=== PATIENT | male | born 1990 | race American Indian/Alaskan Native ===

== ENCOUNTER 2016-10-21 02:27 | Observation (INO) | payer OTHER ==
--- NOTE | 2016-10-21 02:41 | ED PDOC ---
Arrival/HPI - General Time Seen by Provider: 10/21/16 02:30 Historian: Patient, Parent - History of Present Illness Narrative History of Present Illness (Text): 10/21/16 02:35 Zenon Mckeon is a 25 year old male who presents to the emergency department brought in by EMS complaining of abdominal pain. Relative reports patient woke up with right-sided abdominal pain a few hours ago prior to arrival with associated nausea. Relative notes patient was fine throughout the day. Patient denies any fever, chills, chest pain, shortness of breath, vomiting, back pain, neck pain, headache, dizziness, or any other complaints. Time/Duration: 1-3 hours Symptom Onset: Gradual Symptom Course: Worsening Activities at Onset: Rest, Light Context: Home Associated Symptoms (Text): None Past Medical History - Provider Review Nursing Documentation Reviewed: Yes Family/Social History - Physician Review Nursing Documentation Reviewed: Yes Family/Social History: Unknown Family HX Allergies/Home Meds Allergies/Adverse Reactions: Allergies lactose Allergy (Verified 10/21/16 16:13) DIARRHEA Home Medications: Home Meds Medication Instructions Recorded Confirmed No Known Home Med 10/22/16 10/22/16 Review of Systems - Physician Review All systems were reviewed & negative as marked: Yes - Review of Systems Constitutional: Normal. absent: Fevers Eyes: Normal ENT: Normal Respiratory: Normal. absent: SOB, Cough Cardiovascular: Normal. absent: Chest Pain Gastrointestinal: Abdominal Pain (Right lower quadrant ), Nausea. absent: Vomiting Genitourinary Male: Normal. absent: Dysuria, Frequency, Hematuria, Urinary Output Changes Musculoskeletal: Normal. absent: Back Pain, Neck Pain Skin: Normal Neurological: Normal. absent: Headache Endocrine: Normal Hemo/Lymphatic: Normal Psychiatric: Normal Physical Exam Vital Signs Reviewed: Yes Vital Signs Temp Pulse Resp BP Pulse Ox 10/21/16 06:00 95 H 18 136/61 98 10/21/16 04:27 93 H 18 131/80 100 10/21/16 02:46 98.3 F 80 16 155/86 H 98 Temperature: Afebrile Blood Pressure: Normal Pulse: Regular Respiratory Rate: Normal Appearance: Positive for: Well-Appearing, Non-Toxic, Uncomfortable Pain Distress: None Mental Status: Positive for: Alert and Oriented X 3 - Systems Exam Head: Present: Atraumatic, Normocephalic Pupils: Present: PERRL Extroacular Muscles: Present: EOMI Conjunctiva: Present: Normal Mouth: Present: Moist Mucous Membranes Neck: Present: Normal Range of Motion Respiratory/Chest: Present: Clear to Auscultation, Good Air Exchange. No: Respiratory Distress, Accessory Muscle Use Cardiovascular: Present: Regular Rate and Rhythm, Normal S1, S2. No: Murmurs Abdomen: Present: Tenderness (RLQ tenderness), Normal Bowel Sounds. No: Distention, Peritoneal Signs Upper Extremity: Present: Normal Inspection. No: Cyanosis, Edema Lower Extremity: Present: Normal Inspection. No: Edema Neurological: Present: GCS=15, CN II-XII Intact, Speech Normal Skin: Present: Warm, Dry, Normal Color. No: Rashes Psychiatric: Present: Alert, Oriented x 3, Normal Insight, Normal Concentration Medical Decision Making ED Course and Treatment: 10/21/16 2:35 Impression: 25 year old male complaining of right lower abdominal pain. Differential Diagnosis included but are not limited to: appendicitis Plan: -- Labs, VBG -- CT Abdomen and Pelvis with IV contrast -- IV fluids -- Morphine -- Zofran -- Urinalysis -- Reassess and disposition 10/21/16 05:11 Reviewed radiology, CT Abdomen and Pelvis shows: Appendicitis as above. No perforation or abscess. Remainder as above. 10/21/16 05:[address] Sincere Pittman, surgeon aircraft air conditioning mechanic, who is aware and agrees with plan. Accepts pt in her service. Pt will be admitted to [facility] for appendicitis. Pt is no acute distress. Discussed results and hospital admission plan with pt, who is aware and verbalizes understanding. 10/21/16 05:26 Case discussed with certified surgical first assistant aircraft air conditioning mechanic, who is aware and agrees with plan. - Lab Interpretations Microbiology Results: Microbiology Results 10/21/16 02:53 Blood-Venous Blood Culture - Preliminary NO GROWTH AFTER 48 HOURS 10/21/16 02:45 Blood-Venous Blood Culture - Preliminary NO GROWTH AFTER 48 HOURS Lab Results: 10/21/16 02:45 10/21/16 02:45 Lab Results 10/21/16 04:22: Urine Color Yellow, Urine Appearance Clear, Urine pH 7.0, Ur Specific [place] 1.015, Urine Protein Negative, Urine Glucose (UA) Negative, Urine Ketones Negative, Urine Blood Negative, Urine Nitrate Negative, Urine Bilirubin Negative, Urine Urobilinogen 1.0 H, Ur Leukocyte Esterase Negative 10/21/16 02:45: pO2 45, VBG pH 7.42, VBG pCO2 43.0, VBG HCO3 27.9, VBG Total CO2 29.2 H, VBG O2 Sat (Calc) 86.0 H, VBG Base Excess 2.9 H, VBG Potassium 3.6, Sodium 138.0, Chloride 104.0, Glucose 159 H, Lactate 2.9 H, FiO2 21.0, Venous Blood Potassium 3.6 10/21/16 02:45: Sodium 141, Chloride 102, Potassium 3.1 L, Carbon Dioxide 25, Anion Gap 17, BUN 18, Creatinine 1.0, Est GFR ( Amer) > 60, Est GFR (Non- Af Amer) > 60, Random Glucose 148 H, Calcium 9.6, Total Bilirubin 1.4 H, AST 26 , ALT 24, Alkaline Phosphatase 55, Total Protein 7.6, Albumin 4.4, Globulin 3.2 , Albumin/Globulin Ratio 1.4, Lipase 44 10/21/16 02:45: PT 11.6, INR 1.07, APTT 23.8 10/21/16 02:45: WBC 11.0, RBC 4.98, Hgb 15.1, Hct 42.1, MCV 84.5, MCH 30.3, MCHC 35.9, RDW 12.5, Plt Count 205, MPV 10.1, Gran % 71.3 H, Lymph % (Auto) 23.9 , [place] % (Auto) 4.2, Eos % (Auto) 0.5 L, Baso % (Auto) 0.1, Gran # 7.85 H, Lymph # 2.6, [place] # 0.5, Eos # 0.1, Baso # 0.01 I have reviewed the lab results: Yes - RAD Interpretation Narrative RAD Interpretations (Text): CT Abdomen and Pelvis shows: Dictated and Authenticated by: Tony Waite MD The appendix is well visualized and is enlarged, measuring 10 mm, upper limits normal 6 mm. There is wall thickening and subtle periappendiceal stranding. There is no pneumoperitoneum or abscess. There is no bowel obstruction. No acute solid organ pathology. IMPRESSION: Appendicitis as above. No perforation or abscess. Remainder as above. Radiology Orders: 10/21/16 02:48 ABD & PELVIS IV CONTRAST ONLY [CT] Stat Supervisor Speech: Radiologist - Medication Orders Current Medication Orders: Discontinued Medications Famotidine (Pepcid) 20 mg IVP DAILY [facility] Last Admin: 10/22/16 09:40 Dose: 20 mg Fentanyl (Fentanyl) Confirm Administered Dose 100 mcg .ROUTE .STK-MED ONE Stop: 10/21/16 16:41 Glycopyrrolate (Robinul) Confirm Administered Dose 0.4 mg .ROUTE .STK-MED ONE Stop: 10/21/16 17:11 Hydromorphone HCl (Dilaudid) 0.5 mg IVP Q15M PRN PRN Reason: Pain, moderate (4-7) Stop: 10/21/16 18:01 Hydromorphone HCl (Dilaudid) 0.5 mg IVP Q15M PRN PRN Reason: Pain, moderate (4-7) Stop: 10/21/16 20:12 Sodium Chloride (Sodium Chloride 0.9%) 1,000 mls @ 150 mls/hr IV .[id number] [facility] Last Admin: 10/22/16 05:31 Dose: 150 mls/hr Potassium Chloride (Potassium Chloride 20 Meq/100 Ml) 20 meq in 100 mls @ 50 mls/hr IVPB ONCE ONE Stop: 10/21/16 05:28 Last Admin: 10/21/16 03:39 Dose: 50 mls/hr Metronidazole (Flagyl) 500 mg in 100 mls @ 100 mls/hr IVPB STAT STA PRN Reason: Protocol Stop: 10/21/16 06:28 Last Admin: 10/21/16 05:54 Dose: 100 mls/hr Ceftriaxone Sodium (Rocephin 1 Gram Ivpb) 1 gm in 100 mls @ 200 mls/hr IVPB STAT STA PRN Reason: Protocol Stop: 10/21/16 05:59 Last Admin: 10/21/16 05:53 Dose: 200 mls/hr Lactated Ringer's (Lactated Ringer's) 1,000 mls @ 75 mls/hr IV .[id number] [facility] Stop: 10/21/16 18:02 Metronidazole (Flagyl) 500 mg in 100 mls @ 100 mls/hr IVPB Q8 ALLAN PRN Reason: Protocol Last Admin: 10/22/16 05:30 Dose: 100 mls/hr Ceftriaxone Sodium (Rocephin 1 Gram Ivpb) 1 gm in 100 mls @ 200 mls/hr IVPB STAT STA PRN Reason: Protocol Stop: 10/21/16 18:54 Last Admin: 10/21/16 19:43 Dose: 200 mls/hr Iohexol (Omnipaque 350 100 Ml) Confirm Administered Dose 350 mg .ROUTE .STK-MED ONE Stop: 10/21/16 03:43 Ketorolac Tromethamine (Toradol) Confirm Administered Dose 30 mg .ROUTE .STK- MED ONE Stop: 10/21/16 17:11 Midazolam HCl (Versed Inj) Confirm Administered Dose 2 mg .ROUTE .STK-MED ONE Stop: 10/21/16 16:41 Morphine Sulfate (Morphine) 2 mg IVP STAT STA Stop: 10/21/16 02:49 Last Admin: 10/21/16 03:02 Dose: 2 mg Re-Assess: BANNER Pain Assessment Document 10/21/16 04:02 JOAdela (Rec: 10/21/16 06:19 [facility] [place]-[id number]) Pain Reassessment Is this a pain reassessment? Yes Sleep Is patient sleeping during reassessment? Yes Morphine Sulfate (Morphine) 2 mg IVP Q4H PRN PRN Reason: Pain, severe (8-10) Morphine Sulfate (Morphine) 4 mg IVP Q4H PRN PRN Reason: Pain, severe (8-10) Neostigmine Methylsulfate (Neostigmine Methylsulfate) Confirm Administered Dose 3 mg IV .STK-MED ONE Stop: 10/21/16 17:27 Ondansetron HCl (Zofran Inj) 4 mg IVP STAT STA Stop: 10/21/16 02:49 Last Admin: 10/21/16 03:01 Dose: 4 mg Ondansetron HCl (Zofran Inj) 4 mg IVP Q4H PRN PRN Reason: Nausea/Vomiting Ondansetron HCl (Zofran Inj) 4 mg IVP ONCE PRN PRN Reason: Nausea/Vomiting Stop: 10/21/16 23:59 Ondansetron HCl (Zofran Inj) 4 mg IVP ONCE PRN PRN Reason: Nausea/Vomiting Stop: 10/21/16 23:59 Propofol (Diprivan) Confirm Administered Dose 200 mg .ROUTE .STK-MED ONE Stop: 10/21/16 16:41 Propofol (Diprivan) Confirm Administered Dose 200 mg .ROUTE .STK-MED ONE Stop: 10/21/16 17:28 Rocuronium [place] (Zemuron) Confirm Administered Dose 50 mg .ROUTE .STK-MED ONE Stop: 10/21/16 17:11 Succinylcholine Chloride (Quelicin) Confirm Administered Dose 200 mg IV .STK- MED ONE Stop: 10/21/16 16:41 - Scribe Statement The provider has reviewed the documentation as recorded by the Scribe 10/21/16 Shakira Gutierrez training with Janelle Alston All medical record entries made by the Scribe were at my direction and personally dictated by me. I have reviewed the chart and agree that the record accurately reflects my personal performance of the history, physical exam, medical decision making, and the department course for this patient. I have also personally directed, reviewed, and agree with the discharge instructions and disposition. Disposition/Present on Arrival - Present on Arrival Any Indicators Present on Arrival: No - Disposition Have Diagnosis and Disposition been Completed?: Yes Diagnosis: Appendicitis Disposition: HOSPITALIZED Disposition Time: 06:00 Condition: GOOD
[2016-10-21] MEDS ORDERED: Morphine 2 mg/ml ISec IVP STA (02:48)
[2016-10-21 03:01] LABS: BASO # 0.01 K/mm3 (0.0-2.0); BASO % 0.1 % (0.0-3.0); EOS # 0.1 (0.0-0.7); EOS % 0.5 % (1.5-5.0); GRAN # 7.85 (1.4-6.5); GRAN % 71.3 % (50.0-68.0); HEMOGLOBIN 15.1 gm/dL (14.0-18.0); LYMPH # 2.6 (1.2-3.4); LYMPH % 23.9 % (22.0-35.0); MEAN CELL VOLUME 84.5 fL (80.0-105.0); MEAN CORPUSCULAR HEMOGLOBIN 30.3 pg (25.0-35.0); MEAN CORPUSCULAR HGB CONC 35.9 g/dl (31.0-37.0); MEAN PLATELET VOLUME 10.1 fl (7.0-11.0); MONO # 0.5 (0.1-0.6); MONO % 4.2 % (1.0-6.0); PLATELET COUNT 205 10^3/uL (120.0-450.0); RBC 4.98 10^6/uL (3.5-6.1); RED CELL DISTRIBUTION WIDTH 12.5 % (11.5-14.5)
[2016-10-21] MEDS: Sodium Chloride 0.9% 1,000 ML IV SCH ×2 (03:01→21:37)
[2016-10-21 03:04] LABS: VENOUS BLOOD GAS BASE EXCESS 2.9 mmol/L (0.0-2.0); VENOUS BLOOD GAS PO2 45 mm/Hg (30-55); VENOUS BLOOD PH 7.42 (7.32-7.43)
[2016-10-21 03:11] LABS: INR 1.07 (0.93-1.08); PARTIAL THROMBOPLASTIN TIME 23.8 Seconds (23.7-30.8); PROTHROMBIN TIME 11.6 Seconds (9.9-11.8)
[2016-10-21 03:14] LABS: ALB/GLOB RATIO 1.4 (1.1-1.8); ALBUMIN 4.4 g/dL (3.0-4.8); ALT/SGPT 24 U/L (7-56); AST/SGOT 26 U/L (15-59); BLOOD UREA NITROGEN 18 mg/dL (7-21); CALCIUM 9.6 mg/dL (8.4-10.5); GFR AFRICAN-AMERICAN > 60; GFR NON-AFRICAN AMERICAN > 60; LIPASE 44 U/L (23-300)
[2016-10-21] MEDS ORDERED: Iohexol 350 MG/100 ML VIAL ONE (03:42)
[2016-10-21] MEDS ORDERED: metroNIDAZOLE IV 500 mg/100 ml 500 MG/100 ML BAG IVPB STA (05:29)
[2016-10-21] MEDS ORDERED: cefTRIAXone 1 gm 1 GM/100 ML BAG IVPB STA ×2 (05:30→18:25)
[2016-10-21 05:34] LABS: URINE BILIRUBIN NEGATIVE (NEGATIVE); URINE BLOOD NEGATIVE (NEGATIVE); URINE GLUCOSE (UA) NEGATIVE (NEGATIVE); URINE LEUKOCYTE ESTERASE NEGATIVE Leu/uL (NEGATIVE); URINE NITRATE NEGATIVE (NEGATIVE); URINE PROTEIN NEGATIVE mg/dL (<30 mg/dL)
[2016-10-21 05:40] LABS: URINE APPEARANCE CLEAR (CLEAR); URINE COLOR YELLOW (YELLOW)
[2016-10-21] MEDS ORDERED: Morphine 2 mg/ml ISec IVP PRN (05:59)
--- NOTE | 2016-10-21 06:25 | CP.PCM.HP ---
History of Present Illness - History of Present Illness History of Present Illness: 25M no relevant PMHx presented to the emergency department brought in by EMS complaining of abdominal pain that was sharp and crampy in the RLQ. Started at 3am and has not resolved. +flatus. Denies Blood in stool, diarrhea, N/V Fever chills, SOB, ESTES PMHx: none PSHx: none ALL: NKDA SocialHx: denies tobacco, etoh, or illicit drug use. Present on Admission - Present on Admission Any Indicators Present on Admission: No Review of Systems - Constitutional Constitutional: As Per HPI. absent: Fever - Cardiovascular Cardiovascular: As Per HPI. absent: Claudication - Respiratory Respiratory: As Per HPI. absent: Wheezing - Gastrointestinal Gastrointestinal: As Per HPI - Neurological Neurological: As Per HPI Past Patient History - Past Social History Smoking Status: Never Smoked - PSYCHIATRIC Hx Substance Use: No - SURGICAL HISTORY Hx Surgeries: No Meds Allergies/Adverse Reactions: Allergies Allergy/AdvReac Type Severity Reaction Status Date / Time No Known Allergies Allergy Unverified 10/21/16 02:47 Physical Exam - Constitutional Appears: No Acute Distress - Head Exam Head Exam: NORMAL INSPECTION - Respiratory Exam Respiratory Exam: Clear to Auscultation Bilateral, NORMAL BREATHING PATTERN. absent: Accessory Muscle Use, Rhonchi, Wheezes - Cardiovascular Exam Cardiovascular Exam: REGULAR RHYTHM, +S1, +S2. absent: Gallop, Rubs - GI/Abdominal Exam GI & Abdominal Exam: Guarding, Normal Bowel Sounds, Tenderness. absent: Hernia Additional comments: TTP +rovsings, +mcburnys + psoas, -obturator sign - Extremities Exam Extremities exam: Positive for: normal inspection Results - Vital Signs Recent Vital Signs: Last Vital Signs Temp 98.3 F 10/21/16 02:46 Pulse 95 H 10/21/16 06:00 Resp 18 10/21/16 06:00 BP 136/61 10/21/16 06:00 Pulse Ox 98 10/21/16 06:00 - Labs Result Diagrams: 10/21/16 02:45 10/21/16 02:45 Assessment & Plan - Assessment and Plan (Free Text) Assessment: 25M with Acute Appendicitis Plan: -admit to service - NPO - IVF & Abx - Pain control - Scheduled for OR today Discussed with Dr. Zain Reyes PGY1 - Date & Time Date: 10/21/16 Time: 05:20
[2016-10-21] MEDS ORDERED: Lactated Ringer's 1,000 ML IV SCH ×2 (06:31→16:01)
--- NOTE | 2016-10-21 08:08 | CT ---
PROCEDURE: CT Abdomen and Pelvis with contrast HISTORY: abd pain COMPARISON: None. TECHNIQUE: Contrast dose: 100 mL Omnipaque 350 Radiation dose: Total exam DLP = 346.33 mGy-cm. This CT exam was performed using one or more of the following dose reduction techniques: Automated exposure control, adjustment of the mA and/or kV according to patient size, and/or use of iterative reconstruction technique. FINDINGS: LOWER THORAX: Unremarkable. LIVER: Unremarkable. No gross lesion or ductal dilatation. GALLBLADDER AND BILE DUCTS: Unremarkable. PANCREAS: Unremarkable. No gross lesion or ductal dilatation. SPLEEN: Unremarkable. ADRENALS: Unremarkable. No mass. KIDNEYS AND URETERS: Unremarkable. No hydronephrosis. No solid mass. VASCULATURE: Unremarkable. No aortic aneurysm. BOWEL: No bowel obstruction. Mild mural thickening of the rectum common nonspecific. There is under distension of the rectum and this may be artifact. Nevertheless, further evaluation is suggested. No other abnormal bowel loops. No bowel obstruction. APPENDIX: The appendix is distended up to a diameter approximately 9 mm. This is beyond the normal range. There is fluid filling lumen. There is subtle periappendiceal stranding. Findings are consistent with acute appendicitis. No periappendiceal abscess. No free intraperitoneal air. PERITONEUM: Minimal ascites in pelvis. LYMPH NODES: Unremarkable. No enlarged lymph nodes. BLADDER: Unremarkable. REPRODUCTIVE: Normal prostate BONES: No acute fracture. OTHER FINDINGS: None. IMPRESSION: Findings consistent with acute uncomplicated appendicitis. Incidentally noted mural thickening of the rectum, circumferential. Although this is evaluated in the setting of underdistention, further evaluation is suggested to exclude juliano proctitis. Preliminary interpretation of this examination was reported by Hemarina at 4:54 a.m. on 10/21/2016. There is concurrence of this report with the preliminary interpretation. Please note that the finding of rectal wall thickening was not described in the preliminary report of this examination.
[2016-10-21] MEDS ORDERED: Morphine 4 mg/ml ISec IVP PRN (10:49)
[2016-10-21 11:01] VITALS: BMI 24.7
[2016-10-21] MEDS ORDERED: HYDROmorphone 0.5 mg/0.5 ml ISec IVP PRN ×2 (16:01→18:12)
[2016-10-21] MEDS ORDERED: Succinylcholine 200 mg/10 ml Inj IV ONE (16:40)
[2016-10-21] MEDS ORDERED: Propofol 10 mg/ml Inj (20 ML) ONE ×2 (16:40→17:27)
[2016-10-21] MEDS ORDERED: Midazolam 2 MG/2 ML VIAL ONE (16:40)
[2016-10-21] MEDS ORDERED: Rocuronium 10 mg/ml (5 ml) ONE (17:10)
[2016-10-21] MEDS ORDERED: Neostigmine Methylsulfate 3mg/3ml Syringe IV ONE (17:26)
--- NOTE | 2016-10-21 18:34 | PCM.SURG1 ---
Surgeon's Initial Post Op Note - Surgeon's Notes Surgeon: Zain Tube Room Supervisor: Merchant Avi Pre-Operative Diagnosis: Acute Appendicitis Operative Findings: inflamed appendix Post-Operative Diagnosis: Acute appendicitis Operation Performed: Laparoscopic appendectomy Specimen/Specimens Removed: appendix Estimated Blood Loss: EBL {In ML}: 20 Date of Surgery/Procedure: 10/21/16 Time of Surgery/Procedure: 17:00
[2016-10-21] MEDS: metroNIDAZOLE IV 500 mg/100 ml 500 MG/100 ML BAG IVPB SCH (21:31)
[2016-10-22] MEDS: metroNIDAZOLE IV 500 mg/100 ml 500 MG/100 ML BAG IVPB SCH (05:30)
[2016-10-22] MEDS: Sodium Chloride 0.9% 1,000 ML IV SCH (05:31)
[2016-10-22 07:33] VITALS: BP 135/81; PULSE 60; RESP 20; TEMP 98.2; O2SAT 99
--- NOTE | 2016-10-22 08:51 | CP.PCM.DIS ---
Provider - Provider Date of Admission: 10/21/16 05:28 Attending physician: Marva Pittman MD Time Spent in preparation of Discharge (in minutes): 30 Hospital Course - Lab Results Lab Results: Most Recent Lab Values WBC 11.0 10^3/ul (4.5-11.0) 10/21/16 02:45 RBC 4.98 10^6/uL (3.5-6.1) 10/21/16 02:45 Hgb 15.1 gm/dL (14.0-18.0) 10/21/16 02:45 Hct 42.1 % (42.0-52.0) 10/21/16 02:45 MCV 84.5 fL (80.0-105.0) 10/21/16 02:45 MCH 30.3 pg (25.0-35.0) 10/21/16 02:45 MCHC 35.9 g/dl (31.0-37.0) 10/21/16 02:45 RDW 12.5 % (11.5-14.5) 10/21/16 02:45 Plt Count 205 10^3/uL (120.0-450.0) 10/21/16 02:45 MPV 10.1 fl (7.0-11.0) 10/21/16 02:45 Gran % 71.3 % (50.0-68.0) H 10/21/16 02:45 Lymph % (Auto) 23.9 % (22.0-35.0) 10/21/16 02:45 [place] % (Auto) 4.2 % (1.0-6.0) 10/21/16 02:45 Eos % (Auto) 0.5 % (1.5-5.0) L 10/21/16 02:45 Baso % (Auto) 0.1 % (0.0-3.0) 10/21/16 02:45 Gran # 7.85 (1.4-6.5) H 10/21/16 02:45 Lymph # 2.6 (1.2-3.4) 10/21/16 02:45 [place] # 0.5 (0.1-0.6) 10/21/16 02:45 Eos # 0.1 (0.0-0.7) 10/21/16 02:45 Baso # 0.01 K/mm3 (0.0-2.0) 10/21/16 02:45 PT 11.6 Seconds (9.9-11.8) 10/21/16 02:45 INR 1.07 (0.93-1.08) 10/21/16 02:45 APTT 23.8 Seconds (23.7-30.8) 10/21/16 02:45 pO2 45 mm/Hg (30-55) 10/21/16 02:45 VBG pH 7.42 (7.32-7.43) 10/21/16 02:45 VBG pCO2 43.0 (40-60) 10/21/16 02:45 VBG HCO3 27.9 mmol/l (21-28) 10/21/16 02:45 VBG Total CO2 29.2 mmol.L (22-28) H 10/21/16 02:45 VBG O2 Sat (Calc) 86.0 % (40-65) H 10/21/16 02:45 VBG Base Excess 2.9 mmol/L (0.0-2.0) H 10/21/16 02:45 VBG Potassium 3.6 mmol/L (3.6-5.2) 10/21/16 02:45 Sodium 138.0 mmol/L (132-148) 10/21/16 02:45 Chloride 104.0 mmol/L (98-107) 10/21/16 02:45 Glucose 159 mg/dl (75-110) H 10/21/16 02:45 Lactate 2.9 mmol/L (0.7-2.1) H 10/21/16 02:45 FiO2 21.0 % 10/21/16 02:45 Sodium 141 mmol/L (132-148) 10/21/16 02:45 Potassium 3.1 mmol/L (3.6-5.0) L 10/21/16 02:45 Chloride 102 mmol/L (95-110) 10/21/16 02:45 Carbon Dioxide 25 mmol/L (21-33) 10/21/16 02:45 Anion Gap 17 (10-20) 10/21/16 02:45 BUN 18 mg/dL (7-21) 10/21/16 02:45 Creatinine 1.0 mg/dL (0.5-1.4) 10/21/16 02:45 Est GFR ( Amer) > 60 10/21/16 02:45 Est GFR (Non-Af Amer) > 60 10/21/16 02:45 Random Glucose 148 mg/dL (70-110) H 10/21/16 02:45 Calcium 9.6 mg/dL (8.4-10.5) 10/21/16 02:45 Total Bilirubin 1.4 mg/dL (0.2-1.3) H 10/21/16 02:45 AST 26 U/L (15-59) 10/21/16 02:45 ALT 24 U/L (7-56) 10/21/16 02:45 Alkaline Phosphatase 55 U/L (38-133) 10/21/16 02:45 Total Protein 7.6 g/dL (5.8-8.3) 10/21/16 02:45 Albumin 4.4 g/dL (3.0-4.8) 10/21/16 02:45 Globulin 3.2 gm/dL 10/21/16 02:45 Albumin/Globulin Ratio 1.4 (1.1-1.8) 10/21/16 02:45 Lipase 44 U/L (23-300) 10/21/16 02:45 Venous Blood Potassium 3.6 mmol/L (3.6-5.2) 10/21/16 02:45 Urine Color Yellow (YELLOW) 10/21/16 04:22 Urine Appearance Clear (CLEAR) 10/21/16 04:22 Urine pH 7.0 (4.7-8.0) 10/21/16 04:22 Ur Specific [place] 1.015 (1.005-1.035) 10/21/16 04:22 Urine Protein Negative mg/dL (<30 mg/dL) 10/21/16 04:22 Urine Glucose (UA) Negative mg/dL (NEGATIVE) 10/21/16 04:22 Urine Ketones Negative mg/dL (NEGATIVE) 10/21/16 04:22 Urine Blood Negative (NEGATIVE) 10/21/16 04:22 Urine Nitrate Negative (NEGATIVE) 10/21/16 04:22 Urine Bilirubin Negative (NEGATIVE) 10/21/16 04:22 Urine Urobilinogen 1.0 E.U./dL (<1 E.U./dL) H 10/21/16 04:22 Ur Leukocyte Esterase Negative Melissa/uL (NEGATIVE) 10/21/16 04:22 - Hospital Course Hospital Course: Pt came in with left lower quadrant pain was admitted from the ED on 10/21/16 for acute appendicitis. Laparoscopic appendectomy was performed with no complications. Pt tolerated procedure well. Currently tolerating diet and pain is managed. Cleared for discharge. - Date & Time of H&P Date of H&P: 10/21/16 Time of H&P: 20:00 Discharge Exam - Head Exam Head Exam: NORMAL INSPECTION - Respiratory Exam Respiratory Exam: NORMAL BREATHING PATTERN. absent: Accessory Muscle Use, Rales , Rhonchi, Wheezes - Cardiovascular Exam Cardiovascular Exam: REGULAR RHYTHM, +S1, +S2. absent: Gallop, Rubs, Systolic Murmur - GI/Abdominal Exam GI & Abdominal Exam: Normal Bowel Sounds, Soft. absent: Bruit, Distended, Firm , Guarding, Hernia Additional comments: 3 incisions C/D/I with dermabond. - Neurological Exam Neurological exam: Alert, Oriented x3 - Psychiatric Exam Psychiatric exam: Normal Affect, Normal Mood - Skin Skin Exam: Normal Color, Warm Discharge Plan - Follow Up Plan Condition: GOOD Disposition: HOME/ ROUTINE Patient education suggested?: Yes Additional Instructions: Can resume normal activity as tolerated. Can shower, no long baths or swimming in the ocean. No heavy lifting for 4-6 weeks. If pain arises, use over the counter Motrin.
--- NOTE | 2016-11-02 13:41 | PCM.OP ---
Operative Report - Operative Report Date of Surgery/Procedure: 10/21/16 Time of Surgery/Procedure: 15:00 Surgeon: Dr. Pittman Power Switchboard Operator: Dr. Cárdenas Anesthesia/Sedation: General provided by Dr. Snyder Pre-Operative Diagnosis: Acute appendicitis Post-Operative Diagnosis: Acute appendicitis Indication for Surgery: appendicitis Operative Findings: inflamed appendix Procedure/Operation Description: Laparoscopic appendectomy. With the patient in the supine position under adequate general anaesthesia. The abdomen was prepped and draped in the usual sterile manner. Veress needle puncture was performed at the umbilicus with insufflation to 15 cm water pressure of CO2, and a 5 mm trocar was inserted via an infraumbilical incision. Under direct vision 5 and 12 mm trocars were inserted in the LLQ. The appendix was visualized laying along the right gutter. It was grasped and elevated. The distal third of the appendix primarily was acutely inflamed and dilated. The mesoappendix was adherent to the appendix and narrow and the appendix was divided close to the cecum using an endo KARINA stapler. The area of the appendiceal artery was reinforced with hemoclips. The RLQ was examined for hemostasis; it was irrigated and suctioned. The appendix was placed in specimen retrieval bag, and removed via the 12 mm port site. The pneumoperitoneum was released and the trocars were removed. The umbilical and 12 mm port sites were closed with figure of 8 fascial sutures of 0-vicryl. All incisions were closed with 4-0 monocryl subcuticular sutures and steri-strips. Dry, sterile dressing were applied. The patient tolerated the procedure well, and transferred to recovery room in stable condition. Estimated blood loss for the procedure was 20 cc. Estimated Blood Loss: 20cc Complications: none Specimen: appendix Discharge & Condition: to RR in stable condition
== END 2016-10-22 14:07 | disposition home or self-care (01) ==
LOC: ED 02:27 → INTOOBSV 05:28 → ERH 05:28 → 5RSO 06:35
PROVIDERS: ADMIT Specialist; ATTEND Specialist
PROC: 0DTJ4ZZ Resection of Appendix, Percutaneous Endoscopic Approach (ICD-10-PCS; principal; 2016-10-21 13:30)
DX: K35.80 Unspecified acute appendicitis (principal)
CPT/HCPCS: 44970; 74177; 80053; 81003; 82803; 83690; 85025; 85610; 85730; 87040; 88304; 96361; 96365; 96367; 96375; 99285; G0378; J0330; J0696; J1885; J2250; J2270; J2405; J2704; J2710; J3010; J3480; J7040; J7120; Q9967